=== PATIENT | female | born 1965 ===

== ENCOUNTER 2021-01-24 06:00 | Day surgery (SDC) | payer OTHER | END 2021-01-24 10:10 | disposition home or self-care (01) | LOC: AMB-ENDOS 06:00 | PROVIDERS: ATTEND Surgery | DX: D12.2 Benign neoplasm of ascending colon (principal); Z20.822 Contact with and (suspected) exposure to COVID-19 ==

== ENCOUNTER 2024-04-28 05:22 | Day surgery (SDC) | payer OTHER ==
[2024-04-21 11:04] VITALS: BP 120/76
[~2024-04-28] VITALS: Ht 170.2 cm; Wt 117.9 kg
[~2024-04-28 05:22] MED LIST: SYNTHROID200 MCG PO; [UNRECOGNIZED DRUG - OTHER]; [UNRECOGNIZED DRUG - REMARK]
[2024-04-28] MEDS ORDERED: IBU600 MG PO (08:45)
[2024-04-28] MEDS ORDERED: CHLORHEXIDINE GLUCONATE 120 ML BOTTLE TOP ONE (09:00)
== END 2024-04-28 13:10 | disposition home or self-care (01) ==
LOC: CIR.AMB 05:22
PROVIDERS: ATTEND Obstetrics & Gynecology Gynecology
DX: N84.0 Polyp of corpus uteri (principal); N95.0 Postmenopausal bleeding; E11.9 Type 2 diabetes mellitus without complications; I10 Essential (primary) hypertension; E78.00 Pure hypercholesterolemia, unspecified; Z85.850 Personal history of malignant neoplasm of thyroid; E66.9 Obesity, unspecified; G47.33 Obstructive sleep apnea (adult) (pediatric); Z91.013 Allergy to seafood